=== PATIENT | female | born 1960 | race Caucasian/White ===

== ENCOUNTER 2016-12-14 11:15 | Inpatient (IN) ==
[2016-12-14] MEDS ORDERED: Ipratropium/Albuterol Neb 3 ML IH ONE (11:21)
--- NOTE | 2016-12-14 11:24 | Emergency Department Note ---
Disposition Clinical Impression: Acute exacerbation of chronic obstructive airways disease Disposition: Admitted As Inpatient Condition: Fair Referrals: Freedom Bermudez, PAC [Primary Care Provider] - Forms: ED Satisfaction Letter Time of Disposition: 13:08 SOB HPI - General Chief Complaint: ED Shortness of Breath/Dyspnea Stated Complaint: RODRIGUE Time Seen by Provider: 12/14/16 11:15 Source: patient Mode of arrival: EMS Limitations: no limitations Nursing Notes Reviewed: Yes Vital Signs Reviewed: Yes - History of Present Illness 56-year-old female history of COPD, LONNIE on BiPAP at night, she is had shortness of breath increased work of breathing productive sputum and intermittent low- grade fevers are subjective for the last week. She states several positive flu contacts in multiple family members that she has been exposed to been hospitalized recently for pneumonia as bronchitis and flu. Patient states she is not been admitted for last year. She describes productive cough, no current chest pain or abdominal pain, but does have some increased work of breathing, and 1 out of 10 chest discomfort when she is coughing. Patient states that she went to [facility] up [facility] [place], there they called EMS, because she had oxygen saturation 75%, she improved with oxygen by nasal cannula 4 L, was also given 25 of Solu-Medrol, IV access was obtained, patient improved after this and 1 DuoNeb treatment. Pt Subjective Complaint: shortness of breath Onset (ago): week(s) Context: recent illness Severity: moderate Improves with: oxygen Worsens with: exertion, coughing Known history of: COPD Associated symptoms: Reports: fever, cough, wheezing, sputum production Treatment prior to arrival: oxygen Cough present: Yes Cough Description: Voluntary Cough Frequency: Continuous Sputum Amount: Scant - Related Data Home oxygen amount: none Home Medications Medication Instructions Recorded Confirmed Albuterol Sulfate [Ventolin Hfa] 2 puff IH Q6H PRN 12/14/16 12/14/16 Atorvastatin Calcium [Lipitor] 80 mg PO DAILY 12/14/16 12/14/16 BuPROPion SR (12 HR) [Wellbutrin 150 mg PO BID 12/14/16 12/14/16 SR] ClonazePAM [Klonopin] 1 mg PO TID 12/14/16 12/14/16 Cyclobenzaprine [Flexeril] 10 mg PO HS 12/14/16 12/14/16 Diclofenac Sodium [Voltaren] 1 appl TP BID 12/14/16 12/14/16 Ipratropium/Albuterol Sulfate 2 puff IH QID PRN 12/14/16 12/14/16 [Combivent Respimat Inhal [place]] Lamotrigine [Lamictal] 150 mg PO DAILY 12/14/16 12/14/16 Levothyroxine [Synthroid] 50 mcg PO DAILY 12/14/16 12/14/16 Lisinopril/Hydrochlorothiazide 1 tab PO DAILY 12/14/16 12/14/16 [Zestoretic 20-12.5 mg Tablet] Meloxicam [Mobic] 7.5 mg PO DAILY 12/14/16 12/14/16 Multivit-Min/Iron/Folic/Lutein 1 tab PO DAILY 12/14/16 12/14/16 [Centrum Silver Women Tablet] Omeprazole [PriLOSEC] 20 mg PO DAILY 12/14/16 12/14/16 Oxybutynin [Ditropan] 5 mg PO BID 12/14/16 12/14/16 Polyethylene Glycol 3350 [MiraLAX] 17 gm PO DAILY 12/14/16 12/14/16 Sertraline [Zoloft] 100 mg PO BID 12/14/16 12/14/16 Allergies Allergy/AdvReac Type Severity Reaction Status Date / Time Tetracyclines Allergy Rash Verified 12/14/16 11:17 codeine AdvReac Unconscious Verified 12/14/16 12:27 arcadio derived products Allergy Anaphylaxis Uncoded 10/14/15 14:45 Review of Systems: All systems were reviewed with historian and negative except as per below, or as documented in the HPI. Constitutional: fever and chills CV: Denies: chest pain, palpitations, leg swelling Resp: cough, dyspnea, wheezes GI: Denies: abdominal pain, N/V/D/C, hematochezia Denies: dysuria, hematuria MSK: Denies: back pain, neck pain, extremity pain Psych: HX of depression All systems ED: reviewed and negative except as stated. Past Medical History - Past Medical History Attestation: Yes The following information was validated with the patient. 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 Neck: normal inspection, neck is supple, trachea midline, no JVD Resp: Bibasilar crackles, inspiratory/expiratory Wheezes CV: RRR, no m/g/r, Pulses +2 Rad, +2 DP/PT bilaterally, no pedal edema GI: normal inspection, Soft, NTND, BS present and normoactive Back: normal inspection, no tenderness to palpation Neuro: A&O3, CN II-XII grossly intact bilaterally, no gross motor or sensory deficits bilaterally MSK: normal inspection, bilateral UE and LE with normal ROM and no deformities Psych: normal mood, normal affect Skin: No rashes, skin warm, dry, intact - General Limitations: no limitations General appearance: alert Course Course Narrative: 48-year-old female with history of COPD, wheezing and bibasilar crackles concerning for pneumonia versus COPD exacerbation we will try Hetal Crane of neb treatment, placed on nasal cannula oxygen, assess respiratory response to treatment, she is already received steroids in route, also do blood cultures and lactate to evaluate for possible COPD exacerbation concomitant pneumonia, patient disposition is possible admission versus discharge to depending on response to treatments and interventions. Chest pain workup ordered, - Reevaluation(s) Reevaluation #1: Admitted by Dr Colin COPD exacerbation ABG shows no evidence of acidosis, consider respiratory acidosis Vital Signs Temperature 98.8 F 12/14/16 11:20 Pulse Rate 107 12/14/16 11:20 Respiratory Rate 24 12/14/16 11:20 Blood Pressure 124/78 12/14/16 11:20 O2 Sat by Pulse Oximetry 92 L 12/14/16 11:20 Temperature 98.8 F 12/14/16 11:20 Pulse Rate 102 12/14/16 12:15 Respiratory Rate 14 12/14/16 12:15 Blood Pressure 125/80 12/14/16 12:15 O2 Sat by Pulse Oximetry 92 L 12/14/16 12:15 Oxygen Delivery Oxygen Delivery Nasal Cannula Shortness of Breath/Dyspnea - MDM Narrative Medical decision making narrative: 56-year-old female with COPD exacerbation, stabilizing ER with breathing treatments, no indication for BiPAP at this time, patient stable satting 93% on 4 L, admitted to hospitalist service for further workup - Lab Data Lab results reviewed: Yes I reviewed the patient's lab results. Result diagrams: 12/14/16 12:36 12/14/16 12:36 Lab Results 12/14/16 12/14/16 12/14/16 Range/Units 12:36 12:36 12:36 WBC 8.3 (4.3-11.1) K/mcL RBC 4.38 (3.82-4.97) M/mcL Hgb 12.0 (11.5-15.4) g/dL Hct 36.8 (35.3-44.9) % MCV 84.0 (83.0-100.0) fL MCH 27.4 L (28.0-33.3) pg MCHC 32.6 (31.6-35.5) g/dL RDW 13.9 (11.5-14.5) % Plt Count 337 (140-400) K/mcL MPV 9.4 (9.4-12.4) fL Nucleated RBCs/100 WBC 0.5 H (0) /100 WBC Immature Plt Fraction 3.8 (1.1-6.1) % PT 12.1 (9.4-12.1) Seconds INR 1.1 APTT 24.2 L (26.0-36.0) Seconds Sodium 142 (136-145) mEq/L Potassium 3.3 L (3.5-4.5) mEq/L Chloride 100 (98-109) mEq/L Carbon Dioxide 30 H (19-29) mEq/L BUN 6 L (7-20) mg/dL Creatinine 0.68 (0.57-1.11) mg/dL Est GFR ( Amer) > 60 (> 60) Est GFR (Non-Af Amer) > 60 (> 60) BUN/Creatinine Ratio 9 (6-26) Glucose 113 H (70-99) mg/dL Calculated Osmolality 292 (280-300) Lactic Acid (0.5-2.2) mmol/L Calcium 9.2 (8.6-10.8) mg/dL Troponin I (0-0.03) ng/mL B-Natriuretic Peptide (0-100) pg/mL 12/14/16 12/14/16 12/14/16 Range/Units 12:36 12:36 12:36 WBC (4.3-11.1) K/mcL RBC (3.82-4.97) M/mcL Hgb (11.5-15.4) g/dL Hct (35.3-44.9) % MCV (83.0-100.0) fL MCH (28.0-33.3) pg MCHC (31.6-35.5) g/dL RDW (11.5-14.5) % Plt Count (140-400) K/mcL MPV (9.4-12.4) fL Nucleated RBCs/100 WBC (0) /100 WBC Immature Plt Fraction (1.1-6.1) % PT (9.4-12.1) Seconds INR APTT (26.0-36.0) Seconds Sodium (136-145) mEq/L Potassium (3.5-4.5) mEq/L Chloride (98-109) mEq/L Carbon Dioxide (19-29) mEq/L BUN (7-20) mg/dL Creatinine (0.57-1.11) mg/dL Est GFR ( Amer) (> 60) Est GFR (Non-Af Amer) (> 60) BUN/Creatinine Ratio (6-26) Glucose (70-99) mg/dL Calculated Osmolality (280-300) Lactic Acid 0.8 (0.5-2.2) mmol/L Calcium (8.6-10.8) mg/dL Troponin I 0.00 (0-0.03) ng/mL B-Natriuretic Peptide 20 (0-100) pg/mL - Radiology Data Radiology results reviewed: Yes I reviewed the patient's radiology results. - EKG Data EKG attestation: Yes I reviewed and interpreted this EKG. EKG shows normal: Reports: sinus rhythm Rate: Reports: tachycardia (10 7 bpm ID 150 QRS 80 QTc 409) Rhythm: Reports: NSR Acme/QRS: Reports: normal When compared to previous EKG there are: no significant changes (From previous EKG in 2014) Interpretation: Reports: no acute changes - Core Measures AMI Core Measures Followed: No Measure Exclusions: not indicated
--- NOTE | 2016-12-14 11:25 | Emergency Department Note ---
Disposition Clinical Impression: Acute exacerbation of chronic obstructive airways disease Disposition: Admitted As Inpatient Condition: Fair General Adult HPI - General Chief complaint: ED Shortness of Breath/Dyspnea Stated complaint: RODRIGUE Nursing Notes Reviewed: Yes Vital Signs Reviewed: Yes - Related Data Home Medications Medication Instructions Recorded Confirmed Albuterol Sulfate [Ventolin Hfa] 2 puff IH Q6H PRN 12/14/16 12/14/16 Atorvastatin Calcium [Lipitor] 80 mg PO DAILY 12/14/16 12/14/16 BuPROPion SR (12 HR) [Wellbutrin 150 mg PO BID 12/14/16 12/14/16 SR] ClonazePAM [Klonopin] 1 mg PO TID 12/14/16 12/14/16 Cyclobenzaprine [Flexeril] 10 mg PO HS 12/14/16 12/14/16 Diclofenac Sodium [Voltaren] 1 appl TP BID 12/14/16 12/14/16 Ipratropium/Albuterol Sulfate 2 puff IH QID PRN 12/14/16 12/14/16 [Combivent Respimat Inhal [place]] Lamotrigine [Lamictal] 150 mg PO DAILY 12/14/16 12/14/16 Levothyroxine [Synthroid] 50 mcg PO DAILY 12/14/16 12/14/16 Lisinopril/Hydrochlorothiazide 1 tab PO DAILY 12/14/16 12/14/16 [Zestoretic 20-12.5 mg Tablet] Meloxicam [Mobic] 7.5 mg PO DAILY 12/14/16 12/14/16 Multivit-Min/Iron/Folic/Lutein 1 tab PO DAILY 12/14/16 12/14/16 [Centrum Silver Women Tablet] Omeprazole [PriLOSEC] 20 mg PO DAILY 12/14/16 12/14/16 Oxybutynin [Ditropan] 5 mg PO BID 12/14/16 12/14/16 Polyethylene Glycol 3350 [MiraLAX] 17 gm PO DAILY 12/14/16 12/14/16 Sertraline [Zoloft] 100 mg PO BID 12/14/16 12/14/16 Allergies Allergy/AdvReac Type Severity Reaction Status Date / Time Tetracyclines Allergy Rash Verified 12/14/16 11:17 codeine AdvReac Unconscious Verified 12/14/16 12:27 arcadio derived products Allergy Anaphylaxis Uncoded 10/14/15 14:45 Course Vital Signs Temperature 98.8 F 12/14/16 11:20 Pulse Rate 107 12/14/16 11:20 Respiratory Rate 24 12/14/16 11:20 Blood Pressure 124/78 12/14/16 11:20 O2 Sat by Pulse Oximetry 92 L 12/14/16 11:20 Temperature 98.8 F 12/14/16 14:07 Pulse Rate 109 12/14/16 14:07 Respiratory Rate 18 12/14/16 14:07 Blood Pressure 138/83 12/14/16 14:07 O2 Sat by Pulse Oximetry 91 L 12/14/16 14:07 Oxygen Delivery Oxygen Delivery Nasal Cannula Medical Decision Making - MDM Narrative Medical decision making narrative: I examined this patient and my medical decision-making was reviewed with the BOILERMAKER APPRENTICE/PA/Advanced Practice Nurse/Resident Physician. I agree with the documented findings, disposition and treatment plan as described except to the extent set forth below. Patient was seen on arrival by EMS and Dr. Estrada, I agree with his evaluation and management plan, supervised care of the patient to stay. Patient is currently at [facility] for psychiatric treatment. Has a history of COPD. It is not oxygen dependent during the day. They noticed her sats were low. Given her breathing treatments steroids here. She is doing better she is not conversationally dyspneic. A workup on her and get her feeling better and hopefully be able to disposition her back to her care. She is in agreement with this plan. Chest X-Ray 12/14/16 11:18 IMPRESSION: 1. Low lung volumes with bibasilar atelectasis. D/ / Elder Perales MD / Elder Perales MD Interpreting Provider: Elder Perales MD - Lab Data Result diagrams: 12/14/16 12:36 12/14/16 12:36 Lab Results 12/14/16 12/14/16 12/14/16 Range/Units 12:36 12:36 12:36 WBC 8.3 (4.3-11.1) K/mcL RBC 4.38 (3.82-4.97) M/mcL Hgb 12.0 (11.5-15.4) g/dL Hct 36.8 (35.3-44.9) % MCV 84.0 (83.0-100.0) fL MCH 27.4 L (28.0-33.3) pg MCHC 32.6 (31.6-35.5) g/dL RDW 13.9 (11.5-14.5) % Plt Count 337 (140-400) K/mcL MPV 9.4 (9.4-12.4) fL Immature Gran % 5.3 H (0-4) % Seg Neutrophils % 81.2 % Lymphocytes % 7.6 % Monocytes % 5.3 % Eosinophils % 0.1 % Basophils % 0.5 % Neutrophils # 6.7 (1.6-8.9) K/mcL Lymphocytes # 0.6 (0.6-4.6) K/mcL Monocytes # 0.4 (0.0-1.3) K/mcL Eosinophils # 0.0 (0.0-0.6) K/mcL Basophils # 0.0 (0.0-0.2) K/mcL Nucleated RBCs/100 WBC 0.5 H (0) /100 WBC Platelet Estimate Normal (Normal) Immature Plt Fraction 3.8 (1.1-6.1) % PT 12.1 (9.4-12.1) Seconds INR 1.1 APTT 24.2 L (26.0-36.0) Seconds ABG pH (7.32-7.45) pH Units ABG pCO2 (35-45) mmHg ABG pO2 (85-104) mmHg ABG HCO3 (21-27) mEQ/L ABG Total CO2 (20-26) mEq/L ABG O2 Saturation (95-98) % ABG Base Excess (-2.0 to 3.0) mEq/L Liter Flow L/MIN Blood Gas Modality Inspired O2 % Sodium 142 (136-145) mEq/L Potassium 3.3 L (3.5-4.5) mEq/L Chloride 100 (98-109) mEq/L Carbon Dioxide 30 H (19-29) mEq/L BUN 6 L (7-20) mg/dL Creatinine 0.68 (0.57-1.11) mg/dL Est GFR ( Amer) > 60 (> 60) Est GFR (Non-Af Amer) > 60 (> 60) BUN/Creatinine Ratio 9 (6-26) Glucose 113 H (70-99) mg/dL Calculated Osmolality 292 (280-300) Lactic Acid (0.5-2.2) mmol/L Calcium 9.2 (8.6-10.8) mg/dL Troponin I (0-0.03) ng/mL B-Natriuretic Peptide (0-100) pg/mL 12/14/16 12/14/16 12/14/16 Range/Units 12:36 12:36 12:36 WBC (4.3-11.1) K/mcL RBC (3.82-4.97) M/mcL Hgb (11.5-15.4) g/dL Hct (35.3-44.9) % MCV (83.0-100.0) fL MCH (28.0-33.3) pg MCHC (31.6-35.5) g/dL RDW (11.5-14.5) % Plt Count (140-400) K/mcL MPV (9.4-12.4) fL Immature Gran % (0-4) % Seg Neutrophils % % Lymphocytes % % Monocytes % % Eosinophils % % Basophils % % Neutrophils # (1.6-8.9) K/mcL Lymphocytes # (0.6-4.6) K/mcL Monocytes # (0.0-1.3) K/mcL Eosinophils # (0.0-0.6) K/mcL Basophils # (0.0-0.2) K/mcL Nucleated RBCs/100 WBC (0) /100 WBC Platelet Estimate (Normal) Immature Plt Fraction (1.1-6.1) % PT (9.4-12.1) Seconds INR APTT (26.0-36.0) Seconds ABG pH (7.32-7.45) pH Units ABG pCO2 (35-45) mmHg ABG pO2 (85-104) mmHg ABG HCO3 (21-27) mEQ/L ABG Total CO2 (20-26) mEq/L ABG O2 Saturation (95-98) % ABG Base Excess (-2.0 to 3.0) mEq/L Liter Flow L/MIN Blood Gas Modality Inspired O2 % Sodium (136-145) mEq/L Potassium (3.5-4.5) mEq/L Chloride (98-109) mEq/L Carbon Dioxide (19-29) mEq/L BUN (7-20) mg/dL Creatinine (0.57-1.11) mg/dL Est GFR ( Amer) (> 60) Est GFR (Non-Af Amer) (> 60) BUN/Creatinine Ratio (6-26) Glucose (70-99) mg/dL Calculated Osmolality (280-300) Lactic Acid 0.8 (0.5-2.2) mmol/L Calcium (8.6-10.8) mg/dL Troponin I 0.00 (0-0.03) ng/mL B-Natriuretic Peptide 20 (0-100) pg/mL 12/14/16 Range/Units 13:02 WBC (4.3-11.1) K/mcL RBC (3.82-4.97) M/mcL Hgb (11.5-15.4) g/dL Hct (35.3-44.9) % MCV (83.0-100.0) fL MCH (28.0-33.3) pg MCHC (31.6-35.5) g/dL RDW (11.5-14.5) % Plt Count (140-400) K/mcL MPV (9.4-12.4) fL Immature Gran % (0-4) % Seg Neutrophils % % Lymphocytes % % Monocytes % % Eosinophils % % Basophils % % Neutrophils # (1.6-8.9) K/mcL Lymphocytes # (0.6-4.6) K/mcL Monocytes # (0.0-1.3) K/mcL Eosinophils # (0.0-0.6) K/mcL Basophils # (0.0-0.2) K/mcL Nucleated RBCs/100 WBC (0) /100 WBC Platelet Estimate (Normal) Immature Plt Fraction (1.1-6.1) % PT (9.4-12.1) Seconds INR APTT (26.0-36.0) Seconds ABG pH 7.46 H (7.32-7.45) pH Units ABG pCO2 49 H (35-45) mmHg ABG pO2 63 L (85-104) mmHg ABG HCO3 34.8 H (21-27) mEQ/L ABG Total CO2 36.3 H (20-26) mEq/L ABG O2 Saturation 93 L (95-98) % ABG Base Excess 9.6 H (-2.0 to 3.0) mEq/L Liter Flow 4 L/MIN Blood Gas Modality [place] Inspired O2 36 % Sodium (136-145) mEq/L Potassium (3.5-4.5) mEq/L Chloride (98-109) mEq/L Carbon Dioxide (19-29) mEq/L BUN (7-20) mg/dL Creatinine (0.57-1.11) mg/dL Est GFR ( Amer) (> 60) Est GFR (Non-Af Amer) (> 60) BUN/Creatinine Ratio (6-26) Glucose (70-99) mg/dL Calculated Osmolality (280-300) Lactic Acid (0.5-2.2) mmol/L Calcium (8.6-10.8) mg/dL Troponin I (0-0.03) ng/mL B-Natriuretic Peptide (0-100) pg/mL
[2016-12-14] MEDS ORDERED: 0.9 % Sodium Chloride 1,000 ML IV ONE (11:39)
[2016-12-14 12:39] LABS: Basophils % 0.5 %; Eosinophils % 0.1 %; Hematocrit 36.8 % (35.3-44.9); Immature Granulocytes % 5.3 % (0-4); Immature Platelets 3.8 % (1.1-6.1); Lymphocytes # 0.6 K/mcL (0.6-4.6); Lymphocytes % 7.6 %; Mean Corpuscular HGB Conc 32.6 g/dL (31.6-35.5); Mean Corpuscular Hemoglobin 27.4 pg (28.0-33.3); Mean Platelet Volume 9.4 fL (9.4-12.4); Monocytes # 0.4 K/mcL (0.0-1.3); Monocytes % 5.3 %; Nucleated Red Blood Cells 0.5 /100 WBC (0); Platelet Count 337 K/mcL (140-400); Red Blood Count 4.38 M/mcL (3.82-4.97); Red Cell Distribution Width 13.9 % (11.5-14.5); Segmented Neutrophils % 81.2 %
[2016-12-14 12:43] LABS: INR 1.1; Prothrombin Time 12.1 Seconds (9.4-12.1)
[2016-12-14 12:44] LABS: Neutrophils # 6.7 K/mcL (1.6-8.9)
[2016-12-14 12:46] LABS: Activated Partial Thrombo Time 24.2 Seconds (26.0-36.0)
[2016-12-14 12:51] LABS: BUN/Creatinine Ratio 9 (6-26); Blood Urea Nitrogen 6 mg/dL (7-20); Calcium 9.2 mg/dL (8.6-10.8); Carbon Dioxide 30 mEq/L (19-29); Chloride 100 mEq/L (98-109); Glucose 113 mg/dL (70-99); Osmolality,Calculated 292 (280-300); Potassium 3.3 mEq/L (3.5-4.5); Sodium 142 mEq/L (136-145); eGFR For African Americans > 60 (> 60); eGFR For Non-African Americans > 60 (> 60)
[2016-12-14] MEDS ORDERED: Albuterol 2.5 MG/3 ML NEBULIZER IH ONE (13:03)
[2016-12-14 13:06] LABS: Platelet Estimate Normal (Normal)
[2016-12-14 13:13] LABS: ABG Base Excess 9.6 mEq/L (-2.0 to 3.0); ABG HCO3 34.8 mEQ/L (21-27); ABG Oxygen Saturation 93 % (95-98); ABG PCO2 49 mmHg (35-45); ABG PH 7.46 pH Units (7.32-7.45); ABG PO2 63 mmHg (85-104); ABG TCO2 36.3 mEq/L (20-26); Blood Gas FiO2 36 %; Blood Gas Liter Flow 4 L/MIN
[2016-12-14] MEDS ORDERED: Albuterol 2.5 MG/3 ML NEBULIZER IH PRN (13:45)
[2016-12-14] MEDS ORDERED: Acetaminophen 325 MG TABLET PO PRN (13:53)
[2016-12-14] MEDS ORDERED: Ondansetron 4 MG/2 ML VIAL IVP PRN (13:53)
[2016-12-14] MEDS ORDERED: Naloxone 0.4 MG/ML INJ IVP PRN (13:53)
--- NOTE | 2016-12-14 14:10 | Internal Med History&Physical ---
Date of Encounter: 12/14/16 Time of Encounter: 13:30 Internal Medicine - H&P: HPI Chief complaint: SOB, LIU, chest pain x 3 weeks, worse the past couple days. Admitted From: Emergency Dept Plans for Post Hospital Care: Home History of present illness: Ms. Nadira Duncan is a 56 year old female 56-year-old female history of COPD , LONNIE on BiPAP at night, brought in by EMS, with SOB, increased work of breathing and a productive cough (clear and frothy). She reports chest pain with coughinging. No hemoptysis. No nausea, vomiting, diarrhea, abdominal pain, no fever, chills or rigors. No history of endotracheal intubation related to COPD. She continue to soke cigarrettes though she has cut down. She use BiPAP at night. She has had several sick contacts recently. No hospitalilzation in the past year. nO URINARY OR [place] NEUROLOGICAL SYMPTOMS. NO RASH OR SORE THROUGH. NO WEIGHT CHANGES, NO LEG SWELLING. She reports fatigue. No glandular enalrgement.She is FULL CODE as per discussion, she nominates her son, Will Waddell, . ROS: A 10-point ROS was performed, positives and relevant negatives are detailed , system-symptom not mentioned assumed negative unless otherwise stated. Family history: Father: DM2, dementia. mother: Mother is diabetic, son: asthmatic, brother: CAD with quadruple CABG. Vital Signs Temperature 98.8 F 12/14/16 11:20 Pulse Rate 107 12/14/16 11:20 Respiratory Rate 24 12/14/16 11:20 Blood Pressure 124/78 12/14/16 11:20 O2 Sat by Pulse Oximetry 92 L 12/14/16 11:20 Temperature 98.8 F 12/14/16 11:20 Pulse Rate 102 12/14/16 12:15 Respiratory Rate 14 12/14/16 12:15 Blood Pressure 125/80 12/14/16 12:15 O2 Sat by Pulse Oximetry 92 L 12/14/16 12:15 O/E: Mild respiratory distress, not ill or toxic looking, tachypneic, morbidly obese. Cushinoid habitus. HEENT: Not pale, anicteric, afebrile, acyanotic. Trachea is central. Chest: Scattered expiratory wheezing, prolonged expiratory phase, inspiratory crackles in the lung bases, harsh breath sounds. Chest wall pain reproduced with deep breathing and coughing. Heart: Tachycardia, RR, HS1.2 no murmur Abdomen: soft, non-tender, no masses. BS+ : no flank tenderness, no CVA tenderness, no suprapubic tenderness. SPORTS PSYCHOLOGIST: aao x 3, no focal neurological deficits. Psychiatry: mood is good, affect is congruent, speech is normal, thought process is logical and goal-directed. Extremities: no pedal edema, normal pedal pulse, no calf tenderness. Lab Results 12/14/16 12/14/16 12/14/16 Range/Units 12:36 12:36 12:36 WBC 8.3 (4.3-11.1) K/mcL RBC 4.38 (3.82-4.97) M/mcL Hgb 12.0 (11.5-15.4) g/dL Hct 36.8 (35.3-44.9) % MCV 84.0 (83.0-100.0) fL MCH 27.4 L (28.0-33.3) pg MCHC 32.6 (31.6-35.5) g/dL RDW 13.9 (11.5-14.5) % Plt Count 337 (140-400) K/mcL MPV 9.4 (9.4-12.4) fL Nucleated RBCs/100 WBC 0.5 H (0) /100 WBC Immature Plt Fraction 3.8 (1.1-6.1) % PT 12.1 (9.4-12.1) Seconds INR 1.1 APTT 24.2 L (26.0-36.0) Seconds Sodium 142 (136-145) mEq/L Potassium 3.3 L (3.5-4.5) mEq/L Chloride 100 (98-109) mEq/L Carbon Dioxide 30 H (19-29) mEq/L BUN 6 L (7-20) mg/dL Creatinine 0.68 (0.57-1.11) mg/dL Est GFR ( Amer) > 60 (> 60) Est GFR (Non-Af Amer) > 60 (> 60) BUN/Creatinine Ratio 9 (6-26) Glucose 113 H (70-99) mg/dL Calculated Osmolality 292 (280-300) Lactic Acid (0.5-2.2) mmol/L Calcium 9.2 (8.6-10.8) mg/dL Troponin I (0-0.03) ng/mL B-Natriuretic Peptide (0-100) pg/mL 12/14/16 12/14/16 12/14/16 Range/Units 12:36 12:36 12:36 WBC (4.3-11.1) K/mcL RBC (3.82-4.97) M/mcL Hgb (11.5-15.4) g/dL Hct (35.3-44.9) % MCV (83.0-100.0) fL MCH (28.0-33.3) pg MCHC (31.6-35.5) g/dL RDW (11.5-14.5) % Plt Count (140-400) K/mcL MPV (9.4-12.4) fL Nucleated RBCs/100 WBC (0) /100 WBC Immature Plt Fraction (1.1-6.1) % PT (9.4-12.1) Seconds INR APTT (26.0-36.0) Seconds Sodium (136-145) mEq/L Potassium (3.5-4.5) mEq/L Chloride (98-109) mEq/L Carbon Dioxide (19-29) mEq/L BUN (7-20) mg/dL Creatinine (0.57-1.11) mg/dL Est GFR ( Amer) (> 60) Est GFR (Non-Af Amer) (> 60) BUN/Creatinine Ratio (6-26) Glucose (70-99) mg/dL Calculated Osmolality (280-300) Lactic Acid 0.8 (0.5-2.2) mmol/L Calcium (8.6-10.8) mg/dL Troponin I 0.00 (0-0.03) ng/mL B-Natriuretic Peptide 20 (0-100) pg/mL CXR: COPD, bibasilar atelectasis., no infiltrates. EKG: ST (107) IMP Acute on chronic respiratory failure. COPD exacerbation, acute on chronic bronchitis Sinus tachycardia related to respiratory status Chronic morbidities COPD LONNIE Arthritis PLAN Admit to telemetry Oxygen supplementation Bronchodilators scheduled and prn Levaquin po 750 mg po QD Solumedrol 40 mg Q8H IV BiPAP at night. Chest percussion therapy Continue other medications of chronic morbidities GI prophylaxis DVT prophylaxis I discussed my assessment with the patient she verbalized understanding and is agreeable to admission. She is high risk atiya severe respiratory decompensation. Past Med Surg Social Fam HX - Past Medical History Medical history: COPD Psychiatric history: depression, PTSD - Social History Smoking Status: Current every day smoker Smokeless Tobacco Status: No Alcohol use: none Drug use: none Internal Medicine - H&P: Meds Albuterol Sulfate [Ventolin Hfa] 2 puff IH Q6H PRN 12/14/16 [History] Atorvastatin Calcium [Lipitor] 80 mg PO DAILY 12/14/16 [History] BuPROPion SR (12 HR) [Wellbutrin SR] 150 mg PO BID 12/14/16 [History] ClonazePAM [Klonopin] 1 mg PO TID 12/14/16 [History] Cyclobenzaprine [Flexeril] 10 mg PO HS 12/14/16 [History] Diclofenac Sodium [Voltaren] 1 appl TP BID 12/14/16 [History] Ipratropium/Albuterol Sulfate [Combivent Respimat Inhal [place]] 2 puff IH QID PRN 12/14/16 [History] Lamotrigine [Lamictal] 150 mg PO DAILY 12/14/16 [History] Levothyroxine [Synthroid] 50 mcg PO DAILY 12/14/16 [History] Lisinopril/Hydrochlorothiazide [Zestoretic 20-12.5 mg Tablet] 1 tab PO DAILY [History] Meloxicam [Mobic] 7.5 mg PO DAILY 12/14/16 [History] Multivit-Min/Iron/Folic/Lutein [Centrum Silver Women Tablet] 1 tab PO DAILY [History] Omeprazole [PriLOSEC] 20 mg PO DAILY 12/14/16 [History] Oxybutynin [Ditropan] 5 mg PO BID 12/14/16 [History] Polyethylene Glycol 3350 [MiraLAX] 17 gm PO DAILY 12/14/16 [History] Sertraline [Zoloft] 100 mg PO BID 12/14/16 [History] Allergies Tetracyclines Allergy (Verified 12/14/16 11:17) Rash codeine Adverse Reaction (Verified 12/14/16 12:27) Unconscious arcadio derived products Allergy (Uncoded 10/14/15 14:45) Anaphylaxis All Systems PM: A 10-system review of systems was performed and is negative for pertinent findings except as documented above in the HPI. - Constitutional Vitals: Temp Pulse Resp BP Pulse Ox 98.8 F 109 18 138/83 91 L 12/14/16 14:07 12/14/16 14:07 12/14/16 14:07 12/14/16 14:07 12/14/16 14:07 Internal Med - H&P Results - Labs CBC & Chem 7: 12/14/16 12:36 12/14/16 12:36
[2016-12-14] MEDS: 0.9 % Sodium Chloride 1,000 ML IVC SCH (15:32)
[2016-12-14] MEDS: MethylPREDNISolone 40 MG/ML VIAL IVP SCH (15:33)
[2016-12-14] MEDS: levoFLOXacin 750 MG TABLET PO SCH (15:33)
[2016-12-14] MEDS: clonazePAM 1 MG TABLET PO SCH ×2 (15:33→21:39)
[2016-12-14] MEDS: Ipratropium/Albuterol Neb 3 ML IH SCH ×2 (16:22→23:16)
[2016-12-14] MEDS: BuPROPion SR (12 HR) 150 MG TABLET PO SCH (21:39)
[2016-12-15] MEDS: MethylPREDNISolone 40 MG/ML VIAL IVP SCH ×3 (00:26→17:43)
[2016-12-15 05:13] LABS: Basophils % 0.4 %; Hematocrit 33.9 % (35.3-44.9); Hemoglobin 10.9 g/dL (11.5-15.4); Immature Granulocytes % 7.7 % (0-4); Immature Platelets 3.3 % (1.1-6.1); Lymphocytes # 0.5 K/mcL (0.6-4.6); Lymphocytes % 5.7 %; Mean Corpuscular HGB Conc 32.2 g/dL (31.6-35.5); Mean Corpuscular Hemoglobin 27.1 pg (28.0-33.3); Mean Corpuscular Volume 84.3 fL (83.0-100.0); Mean Platelet Volume 9.5 fL (9.4-12.4); Monocytes # 0.6 K/mcL (0.0-1.3); Monocytes % 6.4 %; Neutrophils # 7.2 K/mcL (1.6-8.9); Nucleated Red Blood Cells 0.4 /100 WBC (0); Platelet Count 328 K/mcL (140-400); Red Blood Count 4.02 M/mcL (3.82-4.97); Red Cell Distribution Width 13.8 % (11.5-14.5); Segmented Neutrophils % 79.8 %
[2016-12-15] MEDS: Ipratropium/Albuterol Neb 3 ML IH SCH ×4 (05:58→23:43)
[2016-12-15] MEDS: 0.9 % Sodium Chloride 1,000 ML IVC SCH (06:16)
[2016-12-15] MEDS: *HR* Enoxaparin 40 MG/0.4 ML SYRINGE SQ SCH (06:16)
[2016-12-15 06:40] LABS: Platelet Estimate Normal (Normal); Polychromasia 2+ (Not Present)
[2016-12-15] MEDS: Multivit/Ca/Min/Fe/FA 1 TAB TABLET PO SCH (08:48)
[2016-12-15] MEDS: Lisinopril-HCTZ 20-12.5mg TABLET PO SCH (08:49)
[2016-12-15] MEDS: lamoTRIgine 100 MG TABLET PO SCH (08:49)
[2016-12-15] MEDS: clonazePAM 1 MG TABLET PO SCH ×3 (08:49→20:32)
[2016-12-15] MEDS: BuPROPion SR (12 HR) 150 MG TABLET PO SCH ×2 (08:49→20:32)
--- NOTE | 2016-12-15 12:21 | Internal Med Progress Note ---
Date of Encounter: 12/15/16 Time of Encounter: 12:00 - Assessment and plan (1) Acute exacerbation of chronic obstructive airways disease Current Visit: Yes Status: Acute Assessment and plan: Acute on chronic bronchitis Continue duonebs, solumedrol, levoflox Patient seems to be a chronic retainer due to metabolic alkalosis Monitor closely Goal of O2 is 90-92% (2) Osteoarthritis Current Visit: Yes Status: Chronic Assessment and plan: On Meloxicam as home med Renal function is stable Continue same Monitor chem Qualifiers: Osteoarthritis location: unspecified site Osteoarthritis type: unspecified Qualified Code(s): M19.90 - Unspecified osteoarthritis, unspecified site (3) Tobacco abuse Current Visit: Yes Status: Chronic Assessment and plan: Cessation encouraged Deferred need for NRT for now (4) LONNIE treated with BiPAP Current Visit: Yes Status: Chronic Assessment and plan: BiPAP at night - Subjective Interval history: Seen at bedside being managed for COPD exacerbation secondary to acute on chronic bronchitis Complained of slight nose bleed this morning because of dry air Also states she is now coughing up more green phlegm - Constitutional Vitals: Temp Pulse Resp BP Pulse Ox 98.1 F 115 18 127/83 90 L 12/15/16 11:22 12/15/16 11:22 12/15/16 11:22 12/15/16 11:22 12/15/16 11:22 General appearance: Present: A&O X 3, morbidly obese, pleasant, no acute distress - Head Head exam: Present: atraumatic, normocephalic - Eye Eye exam: Present: PERRL, conjuntiva pink, sclera anicteric Pupils: Present: PERRL - Neck Neck exam general surgery: Present: supple, trachea midline. Absent: lymphadenopathy - Respiratory Respiratory exam: Present: wheezes. Absent: accessory muscle use, rales, rhonchi - Cardiovascular Cardiovascular exam: Present: RRR, +S1, +S2. Absent: diastolic murmur, gallop, rubs, systolic murmur - GI/Abdominal GI/Abdominal exam: Present: normal bowel sounds, soft, no peritoneal signs. Absent: distended, tenderness - Extremities Exam Extremities exam: Present: warm, radial pulses palpable and symetrical. Absent : calf tenderness, cyanotic, pedal edema - Neurological Exam Neurological exam: Present: CN II-XII intact, oriented X3, no focal deficits. Absent: pronater drift, facial droop, speech deficit - Skin Skin exam: Present: dry Internal Medicine: Result - Labs CBC & Chem 7: 12/15/16 04:41 12/14/16 12:36 Labs: Short CBC 12/15/16 Range/Units 04:41 WBC 9.0 (4.3-11.1) K/mcL Hgb 10.9 L (11.5-15.4) g/dL Hct 33.9 L (35.3-44.9) % Plt Count 328 (140-400) K/mcL Neutrophils # 7.2 (1.6-8.9) K/mcL - ABG Interpretation ABG results: ABG ABG pH 7.46 pH Units (7.32-7.45) H 12/14/16 13:02 ABG pCO2 49 mmHg (35-45) H 12/14/16 13:02 ABG pO2 63 mmHg (85-104) L 12/14/16 13:02 ABG O2 Saturation 93 % (95-98) L 12/14/16 13:02 PT/INR, D-dimer PT 12.1 Seconds (9.4-12.1) 12/14/16 12:36 Consult Discharge Plan - Plan Referrals: Freedom Bermudez, PAC [Primary Care Provider] -
[2016-12-15] MEDS: levoFLOXacin 750 MG TABLET PO SCH (14:36)
[2016-12-16] MEDS: MethylPREDNISolone 40 MG/ML VIAL IVP SCH ×2 (00:52→07:39)
[2016-12-16 04:55] LABS: Basophils % 0.4 %; Hematocrit 33.8 % (35.3-44.9); Hemoglobin 10.6 g/dL (11.5-15.4); Immature Granulocytes % 8.2 % (0-4); Immature Platelets 3.5 % (1.1-6.1); Lymphocytes # 0.8 K/mcL (0.6-4.6); Lymphocytes % 6.8 %; Mean Corpuscular HGB Conc 31.4 g/dL (31.6-35.5); Mean Corpuscular Hemoglobin 26.9 pg (28.0-33.3); Mean Corpuscular Volume 85.8 fL (83.0-100.0); Mean Platelet Volume 9.6 fL (9.4-12.4); Monocytes # 0.9 K/mcL (0.0-1.3); Monocytes % 8.3 %; Neutrophils # 8.6 K/mcL (1.6-8.9); Platelet Count 373 K/mcL (140-400); Red Blood Count 3.94 M/mcL (3.82-4.97); Red Cell Distribution Width 14.2 % (11.5-14.5); Segmented Neutrophils % 76.3 %
[2016-12-16 05:01] LABS: BUN/Creatinine Ratio 26 (6-26); Calcium 9.3 mg/dL (8.6-10.8); Carbon Dioxide 27 mEq/L (19-29); Chloride 106 mEq/L (98-109); Glucose 141 mg/dL (70-99); Osmolality,Calculated 300 (280-300); Sodium 143 mEq/L (136-145); eGFR For African Americans > 60 (> 60); eGFR For Non-African Americans > 60 (> 60)
[2016-12-16 05:02] LABS: Blood Urea Nitrogen 18 mg/dL (7-20)
[2016-12-16 05:04] LABS: Potassium 4.4 mEq/L (3.5-4.5)
[2016-12-16] MEDS: *HR* Enoxaparin 40 MG/0.4 ML SYRINGE SQ SCH (05:14)
[2016-12-16] MEDS: Ipratropium/Albuterol Neb 3 ML IH SCH ×4 (05:17→23:58)
[2016-12-16 05:30] LABS: Platelet Estimate Normal (Normal); Polychromasia 1+ (Not Present)
--- NOTE | 2016-12-16 06:19 | Electrocardiograph Report ---
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
[2016-12-16] MEDS: Lisinopril-HCTZ 20-12.5mg TABLET PO SCH (07:39)
[2016-12-16] MEDS: lamoTRIgine 100 MG TABLET PO SCH (07:39)
[2016-12-16] MEDS: Multivit/Ca/Min/Fe/FA 1 TAB TABLET PO SCH (07:40)
[2016-12-16] MEDS: clonazePAM 1 MG TABLET PO SCH ×3 (07:40→21:45)
[2016-12-16] MEDS: BuPROPion SR (12 HR) 150 MG TABLET PO SCH ×2 (07:40→21:45)
--- NOTE | 2016-12-16 08:58 | Internal Med Progress Note ---
Date of Encounter: 12/16/16 Time of Encounter: 08:50 - Assessment and plan (1) Acute exacerbation of chronic obstructive airways disease Current Visit: Yes Status: Acute Assessment and plan: Acute on chronic bronchitis Continue duonebs, levoflox d/c solumedrol Change to prednisone po Patient seems to be a chronic retainer due to metabolic alkalosis Monitor closely Goal of O2 is 90-92% (2) Osteoarthritis Current Visit: Yes Status: Chronic Assessment and plan: On Meloxicam as home med Renal function is stable Continue same Monitor chem Qualifiers: Osteoarthritis location: unspecified site Osteoarthritis type: unspecified Qualified Code(s): M19.90 - Unspecified osteoarthritis, unspecified site (3) Tobacco abuse Current Visit: Yes Status: Chronic Assessment and plan: Cessation encouraged Deferred need for NRT for now (4) LONNIE treated with BiPAP Current Visit: Yes Status: Chronic Assessment and plan: BiPAP at night - Subjective Interval history: 56 Y/O F with PMH of COPD, LONNIE on BiPAP, Tobacco abuse, Depression She is being managed for COPD exacerbation secondary to acute on chronic bronchitis She is seen this morning with no new complains Reports improvement in cough No fever, having less O2 requirement New leukocytosis with no shift possibly due to IV steroids - Constitutional Vitals: Temp Pulse Resp BP Pulse Ox 97.7 F 93 15 150/90 92 L 12/16/16 07:03 12/16/16 07:03 12/16/16 07:03 12/16/16 07:03 12/16/16 07:03 General appearance: Present: A&O X 3, morbidly obese, pleasant, no acute distress - Head Head exam: Present: atraumatic, normocephalic - Eye Eye exam: Present: PERRL, conjuntiva pink, sclera anicteric Pupils: Present: PERRL - Neck Neck exam general surgery: Present: supple, trachea midline. Absent: lymphadenopathy - Respiratory Respiratory exam: Present: CTAB. Absent: accessory muscle use, rales, rhonchi, wheezes - Cardiovascular Cardiovascular exam: Present: RRR, +S1, +S2. Absent: diastolic murmur, gallop, rubs, systolic murmur - GI/Abdominal GI/Abdominal exam: Present: normal bowel sounds, soft, no peritoneal signs. Absent: distended, tenderness - Extremities Exam Extremities exam: Present: warm, radial pulses palpable and symetrical. Absent : calf tenderness, cyanotic, pedal edema - Neurological Exam Neurological exam: Present: CN II-XII intact, oriented X3, no focal deficits. Absent: pronater drift, facial droop, speech deficit - Skin Skin exam: Present: dry, intact Internal Medicine: Result - Labs CBC & Chem 7: 12/16/16 04:31 12/16/16 04:31 Labs: Short CBC 12/16/16 Range/Units 04:31 WBC 11.2 H (4.3-11.1) K/mcL Hgb 10.6 L (11.5-15.4) g/dL Hct 33.8 L (35.3-44.9) % Plt Count 373 (140-400) K/mcL Neutrophils # 8.6 (1.6-8.9) K/mcL BMP 12/16/16 04:31 Sodium 143 Potassium 4.4 D Chloride 106 Carbon Dioxide 27 BUN 18 D Creatinine 0.70 Glucose 141 H Calcium 9.3 - ABG Interpretation ABG results: ABG ABG pH 7.46 pH Units (7.32-7.45) H 12/14/16 13:02 ABG pCO2 49 mmHg (35-45) H 12/14/16 13:02 ABG pO2 63 mmHg (85-104) L 12/14/16 13:02 ABG O2 Saturation 93 % (95-98) L 12/14/16 13:02 PT/INR, D-dimer PT 12.1 Seconds (9.4-12.1) 12/14/16 12:36 Consult Discharge Plan - Plan Referrals: Freedom Bermudez, PAC [Primary Care Provider] -
[2016-12-16] MEDS: levoFLOXacin 750 MG TABLET PO SCH (14:43)
[2016-12-17] MEDS: Ipratropium/Albuterol Neb 3 ML IH SCH ×3 (05:11→15:24)
[2016-12-17] MEDS: *HR* Enoxaparin 40 MG/0.4 ML SYRINGE SQ SCH (06:13)
[2016-12-17] MEDS: Multivit/Ca/Min/Fe/FA 1 TAB TABLET PO SCH (08:08)
[2016-12-17] MEDS: BuPROPion SR (12 HR) 150 MG TABLET PO SCH (08:08)
[2016-12-17] MEDS: lamoTRIgine 100 MG TABLET PO SCH (08:09)
[2016-12-17] MEDS: Lisinopril-HCTZ 20-12.5mg TABLET PO SCH (08:09)
[2016-12-17] MEDS: clonazePAM 1 MG TABLET PO SCH (08:10)
[2016-12-17] MEDS ORDERED: predniSONE 20 MG TABLET PO SCH (09:00)
[2016-12-17 11:12] LABS: Hematocrit 36.7 % (35.3-44.9); Hemoglobin 11.6 g/dL (11.5-15.4); Mean Corpuscular HGB Conc 31.6 g/dL (31.6-35.5); Mean Corpuscular Hemoglobin 27.4 pg (28.0-33.3); Mean Corpuscular Volume 86.8 fL (83.0-100.0); Mean Platelet Volume 9.5 fL (9.4-12.4); Platelet Count 351 K/mcL (140-400); Red Blood Count 4.23 M/mcL (3.82-4.97); Red Cell Distribution Width 14.6 % (11.5-14.5)
[2016-12-17 11:33] VITALS: BP 125/80
[2016-12-17 11:57] LABS: Lymphocytes # 1.2 K/mcL (0.6-4.6); Monocytes # 0.1 K/mcL (0.0-1.3)
[2016-12-17 11:58] LABS: Platelet Clumps Few (Not Present); Platelet Estimate Normal (Normal); Polychromasia 1+ (Not Present); Reactive Lymphocytes Present (Not Present)
--- NOTE | 2016-12-17 13:18 | Discharge Summary ---
Date of Encounter: 12/17/16 Time of Encounter: 13:15 - Discharge Diagnosis (1) Acute exacerbation of chronic obstructive airways disease Priority: Primary Status: Acute (2) Osteoarthritis Priority: Secondary Status: Chronic Qualifiers: Osteoarthritis location: unspecified site Osteoarthritis type: unspecified Qualified Code(s): M19.90 - Unspecified osteoarthritis, unspecified site (3) Tobacco abuse Priority: Secondary Status: Chronic (4) LONNIE treated with BiPAP Priority: Secondary Status: Chronic - Discharge Medications Prescriptions: Levofloxacin 750 mg PO Q24H #4 tablet PredniSONE 40 mg PO DAILY #15 tablet Home Medications: Albuterol Sulfate [Ventolin Hfa] 2 puff IH Q6H PRN 12/14/16 [History] Atorvastatin Calcium [Lipitor] 80 mg PO DAILY 12/14/16 [History] BuPROPion SR (12 HR) [Wellbutrin SR] 150 mg PO BID 12/14/16 [History] ClonazePAM [Klonopin] 1 mg PO TID 12/14/16 [History] Cyclobenzaprine [Flexeril] 10 mg PO HS 12/14/16 [History] Diclofenac Sodium [Voltaren] 1 appl TP BID 12/14/16 [History] Ipratropium/Albuterol Sulfate [Combivent Respimat Inhal [place]] 2 puff IH QID PRN 12/14/16 [History] Lamotrigine [Lamictal] 150 mg PO DAILY 12/14/16 [History] Levothyroxine [Synthroid] 50 mcg PO DAILY 12/14/16 [History] Lisinopril/Hydrochlorothiazide [Zestoretic 20-12.5 mg Tablet] 1 tab PO DAILY [History] Meloxicam [Mobic] 7.5 mg PO DAILY 12/14/16 [History] Multivit-Min/Iron/Folic/Lutein [Centrum Silver Women Tablet] 1 tab PO DAILY [History] Omeprazole [PriLOSEC] 20 mg PO DAILY 12/14/16 [History] Oxybutynin [Ditropan] 5 mg PO BID 12/14/16 [History] Polyethylene Glycol 3350 [MiraLAX] 17 gm PO DAILY 12/14/16 [History] Sertraline [Zoloft] 100 mg PO BID 12/14/16 [History] Levofloxacin 750 mg PO Q24H #4 tablet 12/17/16 [Rx] PredniSONE 40 mg PO DAILY #15 tablet 12/17/16 [Rx] Allergies/Adverse Reactions: Allergies Tetracyclines Allergy (Verified 12/14/16 11:17) Rash codeine Adverse Reaction (Verified 12/14/16 12:27) Unconscious arcadio derived products Allergy (Uncoded 10/14/15 14:45) Anaphylaxis Date of admission: 12/14/16 16:30 Primary care physician: Freedom Bermudez Discharging clinician: Keegan Garcia Anticipated date of discharge: 12/17/16 - Patient Status Disposition: Home, Self-Care Condition: Fair Functional capacity at discharge: independent ambulation Overall status at discharge: patient is progressing back to baseline - Discharge Instructions Instructions: Sleep Apnea Syndrome (DC), How to Stop Smoking (DC), Chronic Obstructive Pulmonary Disease (DC) Follow Up With: Freedom Bermudez, PAC [Primary Care Provider] - Additional Instructions: Follow-up appointments: If there is not an appointment listed below, please call your physician and schedule a follow-up appointment. If you have congestive heart failure and your symptoms return, make an appointment with your physician. Symptoms: If your condition changes or you experience any of the following symptoms, notify your physician immediately: Unusual or worsening pain, fever, persistent nausea and vomiting, bleeding, increase in swelling (especially in your legs), sudden weight gain, extreme dizziness, chest pain, increased drainage or redness from a wound or incision. Go to the emergency department if you experience a problem with breathing. Weights: If you have a history of swelling or shortness of breath, weigh yourself daily and notify your physician if you have a weight gain of two or more pounds in one day or 5 or more pounds in a week. If you experience any of the warning signs for stroke: Sudden numbness or weakness of the face, arm or leg; especially on one side of the body, sudden confusion, trouble speaking or understanding, sudden trouble seeing in one or both eyes, sudden trouble walking, dizziness, loss of balance or coordination, sudden sever headache with no cause; Call 911 or go to the emergency room. Stroke is a medical emergency. Some risk factors for stroke: Age, cigarette smoking, diabetes, excessive alcohol consumption, family history , high blood pressure, overweight, physical inactivity, prior stroke, heart attack, diagnosis of carotid artery stenosis or other artery disease. If you smoke, STOP: Smoking or tobacco use significantly increases your risk of heart and lung disease. Your chance of disease greatly increases if you continue to smoke. For more information, call the [place] tobacco quit line for smoking cessation - QUIT-NOW ( ) - Diet and Activity Activity: resume usual activities as tolerated, wear oxygen at all times Diet: low fat, low cholesterol Interval History: See below Hospital course: Ms. Nadira Duncan is a 56 year old female 56 Y/O F with PMH of COPD, LONNIE on BiPAP, Tobacco abuse, Depression She was admitted to observation and managed for acute on chronic hypoxic respiratory failure secondary to COPD exacerbation secondary to acute on chronic bronchitis She was placed on Duonebs, Solumedrol, Levofloxacin She was seen this morning at bedside Reports significant improvement. She reports she is breathing better and cough has improved Work up on admission and through stay was unremarkable She is stable for discharge home on po levoflox and prednisone taper Patient is a smoker, smoking cessation counselling done for 3 minutes, she refuses NRT She qualified for home O2, prescription made for same Her BIPAP machine at home is said to be faulty, prescription for new one made with [facility] Follow up with PCP, resume other chronic home meds Time spent discussing smoking cessation with patient: 3 to 10 minutes (3 minutes spent on tobacco cessation counselling) - Time Spent with Patient Total time spent providing and/or coordinating discharge services: Less than 30 minutes - Constitutional Vitals: Temp Pulse Resp BP Pulse Ox 97.4 F L 103 18 125/80 96 12/17/16 11:32 12/17/16 11:32 12/17/16 11:32 12/17/16 11:32 12/17/16 11:32 General appearance: Present: A&O X 3, morbidly obese, pleasant, no acute distress - Head Head exam: Present: atraumatic, normocephalic - Eye Eye exam: Present: PERRL, conjuntiva pink, sclera anicteric Pupils: Present: PERRL - Neck Neck exam general surgery: Present: supple, trachea midline. Absent: lymphadenopathy - Respiratory Respiratory exam: Present: CTAB. Absent: accessory muscle use, rales, rhonchi, wheezes - Cardiovascular Cardiovascular exam: Present: RRR, +S1, +S2. Absent: diastolic murmur, gallop, rubs, systolic murmur - GI/Abdominal GI/Abdominal exam: Present: normal bowel sounds, soft, no peritoneal signs. Absent: distended, tenderness - Extremities Exam Extremities exam: Present: warm, radial pulses palpable and symetrical. Absent : calf tenderness, cyanotic, pedal edema - Neurological Exam Neurological exam: Present: CN II-XII intact, oriented X3, no focal deficits. Absent: pronater drift, facial droop, speech deficit - Skin Skin exam: Present: dry, intact
== END 2016-12-17 15:30 | disposition home or self-care (01) | DRG 140 ==
LOC: 3BNU 11:15 → EMEROO 11:15 → 3BNU 13:52 → SUATTDRO 16:30
PROVIDERS: ADMIT Nurse Practitioner Family; ATTEND Internal Medicine